=== PATIENT | male | born 1975 | race Caucasian/White ===

== ENCOUNTER 2017-01-13 16:51 | Emergency (ER) | payer OTHER ==
--- NOTE | 2017-01-13 17:30 | EDPHY ---
H & P Stated Complaint: seizure Time Seen by Provider: 01/13/17 17:29 HPI/ROS: HPI: This is a 41-year-old male presents with Chief Complaint: Seizure laceration Location: Body Quality: Seizure Duration: 3-5 hours prior to arrival Signs and Symptoms: No bleeding, no radiation, no numbness, no weakness, no tingling, no incontinence, no decreased range of motion, + swelling, + pain Timing: Acute Severity: [id number] Context: Patient is recently incarcerated and presents after his cell mate found him on the floor in their cell. He does not remember the events surrounding him ending up on the floor. His cell mate said that his whole body was shaking it looked like a seizure. Patient reports that he has a history of seizures has not taken any medications in over 5 years. + urinary incontinence. Denies biting his tongue. + mild posterior neck pain without radiculopathy. Right eyebrow abrasion noted with some associated mild discomfort. Officer reports when they responded to his cell that patient was not post-ictal and that he was very talkative. He denies any chest pain/shortness of breath/ palpitations/fever/cough. He denies any illegal drug use. Modifying Factors: Arrived with cervical collar in place Comment: ROS: see HPI Constitutional: No fever, no chills, no weight loss Eyes: No blurred vision Respiratory: No shortness of breath, no cough Cardiovascular: No chest pain Gastrointestinal: No nausea, no vomiting no diarrhea Genitourinary: No dysuria Extremities: No myalgias Neurologic: No weakness, no numbness Skin: No rashes Hematologic: No bruising, no bleeding MEDICAL/SURGICAL/SOCIAL HISTORY: Medical history: TBI, IV drug abuse, Hep C, Bipolar,recovering alcoholic Surgical history: Denies Social history: Currently incarcerated CONSTITUTIONAL: awake and alert, no obvious distress HEENT: 0.5 cm abrasion noted to right eyebrow, normocephalic. NECK: supple, no midline tenderness, flexion 45 degrees, extension 45 degrees, right and left lateral flexion 45 degrees. No meningismus. Cardiovascular: Normal S1/S2, regular rate, regular rhythm, without murmur rub or gallop. PULMONARY/CHEST: Symmetrical and nontender. no crepitus. Clear to auscultation bilaterally. Good air movement. No accessory muscle usage. ABDOMEN: Soft, nondistended, nontender, no ecchymosis. PELVIC: no pain with rocking; bilateral hips flexion 125 degrees, extension 30 degrees, with no pain internal rotation and no pain external rotation. BACK: No midline tenderness, no paraspinous spasm, deep tendon reflexes 2/2, no pain with straight leg raise EXTREMITIES: 2/2 pulses, no deformities, no clubbing, no cyanosis or edema. NEUROLOGICAL: no focal neuro deficits. GCS 15. Light touch sensation intact. Normal finger to nose. Normal [id number]. Speech clear. Insurance Claims Analyst strength 5/5 equal and bilateral. SKIN: Warm and dry, no erythema. no rash. Good capillary refill. Source: Patient Exam Limitations: No limitations - Personal History Current Tetanus/Diphtheria Vaccine: Yes Current Tetanus Diphtheria and Acellular Pertussis (TDAP): Yes Tetanus Vaccine Date: 2007 - Medical/Surgical History Hx Asthma: No Hx Chronic Respiratory Disease: No Hx Diabetes: No Hx Cardiac Disease: No Hx Renal Disease: No Hx Cirrhosis: No Hx Alcoholism: Yes Hx HIV/AIDS: No Hx Splenectomy or Spleen Trauma: No Other PMH: TBI, IV drug abuse, Hep C, Bipolar REcovering alcoholic - Social History Smoking Status: Former smoker Constitutional: Initial Vital Signs Temperature (C) 36.5 C 01/13/17 17:02 Heart Rate 60 01/13/17 17:02 Respiratory Rate 18 01/13/17 17:02 Blood Pressure 108/55 L 01/13/17 17:02 O2 Sat (%) 99 01/13/17 17:02 O2 Delivery Mode Room Air Allergies/Adverse Reactions: No Known Allergies Allergy (Unverified 01/24/11 23:59) Home Medications: Medication Instructions Recorded Stopped Taking Depakote And 01/24/11 Klonopin Medical Decision Making - Diagnostics Imaging Results: Imaging Impressions Cervical Spine CT 01/13/17 17:57 Impression: No fracture or evidence of ligamentous injury. Findings and recommendations discussed with Dede Mccann at 1822 hour, 2016. Final report concurs with initial preliminary interpretation. Head CT 01/13/17 17:57 Impression: Nothing acute intracranially. Findings and recommendations discussed with Dede Mccann at 1822 hour, 2016. Final report concurs with initial preliminary interpretation. ED Course/Re-evaluation: Labs, head CT scan, CT cervical CT scan Vital signs noted and stable ? LOC but no neurological complaints upon arrival. Small right eyebrow abrasion clean with mild soap and water and Steri-Strips placed. 1825: Called by radiologist who advised that head CT scan shows no acute intracranial process and cervical CT scan is unremarkable. Cervical collar removed and neck exam completed and benign. Labs reviewed and no gross abnormality including CPK Doubt seizure occurred as patient was not postictal Differential Diagnosis: Altered mental status including but not limited to hypoglycemia, infectious process, electrolyte abnormality, seizure activity, head injury and intoxicants. - Data Points Laboratory Results: Laboratory Results 01/13/17 17:30 01/13/17 18:40 01/13/17 01/13/17 01/13/17 18:40 17:30 17:30 WBC 8.72 10^3/uL 10^3/uL (3.80-9.50) RBC 5.16 10^6/uL 10^6/uL (4.40-6.38) Hgb 16.6 g/dL g/dL (13.7-17.5) Hct 46.1 % % (40.0-51.0) MCV 89.3 fL fL (81.5-99.8) MCH 32.2 pg pg (27.9-34.1) MCHC 36.0 g/dL g/dL (32.4-36.7) RDW 12.0 % % (11.5-15.2) Plt Count 230 10^3/uL 10^3/uL (150-400) MPV 9.2 fL fL (8.7-11.7) Neut % (Auto) 56.8 % % (39.3-74.2) Lymph % (Auto) 32.6 % % (15.0-45.0) [place] % (Auto) 8.3 % % (4.5-13.0) Eos % (Auto) 1.9 % % (0.6-7.6) Baso % (Auto) 0.2 % L % (0.3-1.7) Nucleat RBC Rel Count 0.0 % % (0.0-0.2) Absolute Neuts (auto) 4.95 10^3/uL 10^3/uL (1.70-6.50) Absolute Lymphs (auto) 2.84 10^3/uL 10^3/uL (1.00-3.00) Absolute Monos (auto) 0.72 10^3/uL 10^3/uL (0.30-0.80) Absolute Eos (auto) 0.17 10^3/uL 10^3/uL (0.03-0.40) Absolute Basos (auto) 0.02 10^3/uL 10^3/uL (0.02-0.10) Absolute Nucleated RBC 0.00 10^3/uL 10^3/uL (0-0.01) Immature Gran % 0.2 % % (0.0-1.1) Immature Gran # 0.02 10^3/uL 10^3/uL (0.00-0.10) Sodium 138 mEq/L mEq/L Not Reported (134-144) Potassium 3.9 mEq/L mEq/L Not Reported (3.5-5.2) Chloride 106 mEq/L mEq/L Not Reported (97-110) Carbon Dioxide 23 mEq/l mEq/l Not Reported (22-31) Anion Gap 9 mEq/L mEq/L Not Reported (8-16) BUN 12 mg/dL mg/dL Not Reported (7-23) Creatinine 0.7 mg/dL mg/dL Not Reported (0.7-1.3) Estimated GFR > 60 Not Reported Glucose 82 mg/dL mg/dL Not Reported (70-100) Calcium 8.1 mg/dL L mg/dL REJ (8.5-10.4) Magnesium 1.8 mg/dL mg/dL REJ (1.6-2.3) Creatine Kinase 51 IU/L IU/L REJ (0-224) Troponin I Pending REJ Departure - Departure Disposition: Law Enforcement/Court/Retirement Clinical Impression: Seizure disorder Abrasion of right eyebrow Qualifiers: Encounter type: initial encounter Qualified Code(s): S00.211A - Abrasion of right eyelid and periocular area, initial encounter Condition: Good Instructions: Abrasion (ED), Recurrent Seizures in Adults (ED) Additional Instructions: Please allow Steri-Strips to fall off on their own. You may use Tylenol and/or ibuprofen as needed for pain. Patient is medically cleared to return back to long-term. Referrals: [facility],. [Clinic] - As per Instructions
[2017-01-13 18:00] VITALS: RESP 16
[2017-01-13 18:04] LABS: PLATELET COUNT 230 10^3/uL (150-400)
[2017-01-13 19:08] LABS: CREATINE KINASE 51 IU/L (0-224)
[2017-01-13 19:49] VITALS: BP 105/71; PULSE 62; TEMP 98.2; O2SAT 100
== END 2017-01-13 19:52 ==
LOC: EDUNIT#
DX: S00.211A Abrasion of right eyelid and periocular area, initial encounter (principal); G40.909 Epilepsy, unspecified, not intractable, without status epilepticus; Z87.891 Personal history of nicotine dependence; X58.XXXA Exposure to other specified factors, initial encounter